=== PATIENT | female | born 1990 | race Hispanic/Latino ===

== ENCOUNTER 2018-04-14 13:52 | Inpatient (IN) | payer MEDICAID, SELFPAY ==
[2018-04-14 14:41] VITALS: BMI 35.9
[2018-04-14 15:50] LABS: Bilirubin Small (Negative); Blood, Urine Negative (Negative); Clarity CLOUDY (Clear); Glucose, Urine (Dipstick) Negative (Negative); Leukocyte Negative (Negative); Nitrite Negative (Negative); Protein, Urine (Dipstick) 100 mg/dL (Neg-Trace); Specific Gravity, Urine 1.018 (1.002-1.036); pH, Urine 5.5 (5.0-9.0)
[2018-04-14 15:53] LABS: Bacteria/HPF None Seen HPF (None Seen); Hyaline Casts/LPF 4-6 HYALINE CAST LPF (0-3 Hyaline); Squamous Epithelial 0-3 HPF (0-3); WBC/HPF 0-3 HPF (0-3)
[2018-04-14 15:59] LABS: #Eosinphils 0.1 thou/uL (0.0-0.7); #Lymphocytes 1.8 thou/uL (1.20-3.40); #Monocytes 0.4 thou/uL (0.11-0.59); #Neutrophils 3.9 thou/uL (1.40-6.50); %Basophils 0.1 % (0.0-1.0); %Lymphocytes 28.9 % (21.0-51.0); %Monocytes 6.1 % (0.0-10.0); %Neutrophils 63.8 % (42.0-75.0); Hemoglobin 12.8 g/dL (12.0-16.0); Mean Corpuscular HGB CONC 33.6 g/dL (32.0-36.0); Mean Corpuscular Hemoglobin 27.3 pg (27.0-31.0); Mean Corpuscular Volume 81.2 fl (81.0-99.0); Platelet Count 160 thou/uL (130-400); RBC Distribution Width 20.2 % (11.5-14.5); Red Blood Cell (RBC) Count 4.69 mill/uL (4.20-5.40); White Blood Cell (WBC) Count 6.2 thou/uL (4.8-10.8)
[2018-04-14 16:04] LABS: Crystals/HPF 2+ AMORPH URATES HPF (Negative); RBC/HPF 0-3 HPF (0-3)
[2018-04-14 17:31] LABS: Bilirubin Moderate (Negative); Blood, Urine Negative (Negative); Clarity CLOUDY (Clear); Glucose, Urine (Dipstick) Negative (Negative); Leukocyte Negative (Negative); Nitrite Negative (Negative); Protein, Urine (Dipstick) 30 mg/dL (Neg-Trace); Specific Gravity, Urine 1.022 (1.002-1.036); pH, Urine 5.5 (5.0-9.0)
[2018-04-14 17:33] LABS: Bacteria/HPF None Seen HPF (None Seen); Squamous Epithelial 0-3 HPF (0-3); WBC/HPF 0-3 HPF (0-3)
[2018-04-14 17:34] LABS: Pathc Cast-AUWi Flag 3.05 (0-2.49)
[2018-04-14 17:51] LABS: Hyaline Casts/LPF 0-3 HYALINE CAST LPF (0-3 Hyaline); Other Casts/LPF 0-3 COARSE GRAN LPF (0-3 Hyaline)
[2018-04-14 18:02] LABS: ALT (SGPT) 78 U/L (8-55); AST (SGOT) 62 U/L (5-34); Albumin 3.1 g/dL (3.5-5.0); Alkaline Phosphatase 326 U/L (40-150); Anion Gap 16 mmol/L (10-20); BUN (Urea Nitrogen) 10 mg/dL (7.0-18.7); Bilirubin, Total 1.7 mg/dL (0.2-1.2); Calc. Creatinine Clearance 133 mL/min (70-130); Carbon Dioxide 19 mmol/L (22-29); Chloride 103 mmol/L (98-107); Estimated GFR-MDRD Greater than 90; Globulin 3.8 g/dL (2.4-3.5); Glucose 73 mg/dL (70-105); Potassium 3.8 mmol/L (3.5-5.1); Protein, Total 6.9 g/dL (6.0-8.3); Sodium 134 mmol/L (136-145)
[2018-04-14] MEDS ORDERED: Ondansetron HCl/PF 4 MG/2 ML Vial IVP PRN (18:26)
[2018-04-14] MEDS ORDERED: Promethazine HCl 25 MG/ML VIAL IM PRN (18:26)
[2018-04-14] MEDS ORDERED: Zolpidem Tartrate 5 MG TAB PO PRN (18:26)
[2018-04-14] MEDS ORDERED: Betamet Acet/Betamet Na Ph 30 MG/5 ML VIAL ONE (18:28)
--- NOTE | 2018-04-14 18:36 | PDOC.LDHP ---
Labor and Delivery H&P Chief complaint: contractions HPI: 28 yo LAF at 36 weeks presents c/o UC since early this AM. Denies ROM, bleeding, DODSON or visual changes. Has repeat C/S set with Dr. Cochran on 04/29/18. Current gestational age (weeks): 36 Due date: 05/10/18 Dating criteria: second trimester ultrasound Grav: 6 Para: 5 Current complications: gestational diabetes Abnormal US findings: No Current medications: pre- vitamins, other (Metformin) Previous surgical history: low tranverse CS Allergies/Adverse Reactions: Allergies Allergy/AdvReac Type Severity Reaction Status Date / Time No Known Drug Allergies Allergy Verified 04/14/18 16:18 Social history: none - Physical Exam Abnormal vital signs: Initial BP= 142/95 General: NAD Heart: RRR Lungs: nonlabored breathing Abdomen: gravid FHT: category 1 [place] contractions every: No regular UCs seen - Vaginal Exam cm dilated: 1 Effacement: 50% Station: 3+ - OB Labs Blood type: O RH: positive Antibody Screen: negative HIV: negative RPR: negative HEPSAg: negative GBS: negative Rubella: immune - Assessment 36 2/7 week IUP 4 previous C/S GDM on diet, Metformin Mildly elevated LFTs, with proteinuria - Plan -: D/w Dr Cochran Will OBS for now and start 24 hr urine for TP and give steroids for FLM Labs will be repeated in AM.
--- NOTE | 2018-04-14 21:45 | ULT ---
RIGHT UPPER QUADRANT ABDOMINAL ULTRASOUND: 04/14/18 HISTORY: Elevated LFTs. COMPARISON: None. TECHNIQUE: Multiplanar bravo scale and color doppler images are obtained in a right upper quadrant abdominal ultr asound. FINDINGS: The liver is normal in echogenicity without focal lesions or intrahepatic ductal dilatation. There ar e multiple stones filling the gallbladder without gallbladder wall thickening or pericholecystic flui d The common bile duct is normal measuring 3 mm. The visualized portions of the pancreas are unremarkable. The right kidney is normal in echogenicity without hydronephrosis or calculus and measures 10.4 cm in length. IMPRESSION: Cholelithiasis. POS: SOHAIL
--- NOTE | 2018-04-14 21:50 | ULT ---
OB ULTRASOUND 04/14/18 HISTORY: female with hypertension. TECHNIQUE: Multiplanar bravo scale and color doppler images were obtained in a transabdominal ultrasound. FINDINGS: There is a single live intrauterine with heart rate of 141 beats per minute. Estimated feta l weight is 336 grams. Average age of the fetus based off today's examination is 36 weeks, 5 days. Th e following measurements were taken and dates based on these measurements are as follows: BPD 9.0 cm 36 weeks, 3 days HC 32.25 cm 36 weeks, 3 days AC 35.27 cm 39 weeks, 1 day FL 6.98 cm 35 weeks, 6 days JORDAN is 23.7 cm, which is normal. IMPRESSION: Single live intrauterine with estimated age of 36 weeks, 5 days. POS: SOHAIL
--- NOTE | 2018-04-14 21:52 | ULT ---
BIOPHYSICAL PROFILE 04/14/18 HISTORY: female with hypertension. TECHNIQUE: Multiplanar bravo scale and color doppler images were obtained in a transabdominal ultrasound fo r biophysical profile. FINDINGS: There is a single live intrauterine with heart rate of 141 beats per minute. JORDAN is 23.7 cm , which is normal. The patient scored 8 of 8 on the biophysical profile. IMPRESSION: Normal biophysical profile. POS: CHAO
[2018-04-15 01:20] LABS: Creatinine, Urine 108.01 mg/dL (47-110)
[2018-04-15 01:54] LABS: HBSAg Index 0.19 S/CO (0-0.99); Hep B Surf Ag Non-Reactive S/CO (NonReactive); Hep C IgG Ab Non-Reactive (NonReactive); Hep C Index 0.06 S/CO (0-0.79)
--- NOTE | 2018-04-15 05:47 | PDOC.EVN ---
Event Note - Event Note Event Note: Sleeping. Last BP= 117/66. 24 hr urine for TP in progress. 1st dose of steroids given CBC and Chem panel pending.
[2018-04-15 06:45] LABS: Hemoglobin 12.1 g/dL (12.0-16.0); Mean Corpuscular HGB CONC 33.4 g/dL (32.0-36.0); Mean Platelet Volume 10.1 fL (7.4-10.4); Platelet Count 136 thou/uL (130-400); RBC Distribution Width 20.1 % (11.5-14.5); Red Blood Cell (RBC) Count 4.49 mill/uL (4.20-5.40); White Blood Cell (WBC) Count 4.9 thou/uL (4.8-10.8)
[2018-04-15 07:04] LABS: ALT (SGPT) 77 U/L (8-55); AST (SGOT) 55 U/L (5-34); Albumin 2.8 g/dL (3.5-5.0); Alkaline Phosphatase 293 U/L (40-150); Anion Gap 14 mmol/L (10-20); BUN (Urea Nitrogen) 15 mg/dL (7.0-18.7); Bilirubin, Total 1.5 mg/dL (0.2-1.2); Calc. Creatinine Clearance 124 mL/min (70-130); Calcium 8.6 mg/dL (7.8-10.44); Carbon Dioxide 17 mmol/L (22-29); Chloride 107 mmol/L (98-107); Estimated GFR-MDRD 89; Globulin 3.5 g/dL (2.4-3.5); Glucose 156 mg/dL (70-105); Potassium 4.1 mmol/L (3.5-5.1); Protein, Total 6.3 g/dL (6.0-8.3); Sodium 134 mmol/L (136-145)
--- NOTE | 2018-04-15 07:45 | PDOC.LDPN ---
Labor & Delivery Progress Note - Subjective Subjective: comfortable, other (Pt denies any ctx. Good FM. No h/a, swelling, RUQ pain or any other concerns this AM. ) - Objective Vital signs reviewed and normal: yes (All wnl. No HTN overnight with continuous observation) General: NAD, other (no edema, no RUQ tenderness, ) Uterine fundus: non tender FHT: category 1 (130s, mod sharda, +accels, no decels) [place] contractions every: ctx on admission, none since - Assessment (1) 36 weeks gestation of Code(s): Z3A.36 - 36 WEEKS GESTATION OF Current Visit: Yes Status : Acute (2) Transaminitis Code(s): R74.0 - NONSPEC ELEV OF LEVELS OF TRANSAMNS & LACTIC ACID DEHYDRGNSE Current Visit: Yes Status: Acute (3) Gestational diabetes Code(s): O24.419 - GESTATIONAL DIABETES MELLITUS IN , UNSP CONTROL Current Visit: Yes Status: Acute (4) Cholelithiasis Code(s): K80.20 - CALCULUS OF GALLBLADDER W/O CHOLECYSTITIS W/O OBSTRUCTION Current Visit: Yes Status: Acute -: VSS overnight. Only mild HTN on admission, otherwise normal. Suspect may have been related to pain on initial evaluation. . Reviewed labs with pt. LFTs are stable and no thrombocytopenia or anemia. RUQ US with cholelithiasis. This may be the source for transaminitis. 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 24 hour urine pending. BPP 8/8, FAY wnl. Complete 24 hour observation and await pending labs. Reviewed with pt that if HTN and labs are persistent, dx of pre-eclampsia with severe features would prompt delivery, therefore BMTZ course started. However, at this time uncertain of source of laboratory abnormalities. Accuchecks today. Will not restart metformin due to LFTs
[2018-04-15 09:10] LABS: HIV (1/2) Antibody/Antigen Non-Reactive (NonReactive); HIV 1/2 INDEX 0.05 S/CO (<1.00)
--- NOTE | 2018-04-15 16:56 | PDOC.LDPN ---
Labor & Delivery Progress Note - Subjective Subjective: comfortable - Objective Vital signs reviewed and normal: yes General: NAD Uterine fundus: non tender FHT: category 2 (130s, mod sharda, +accels, one variable decel when moving. Reassuring FHTs and BPP 06/22) [place] contractions every: rare - Assessment (1) 36 weeks gestation of Code(s): Z3A.36 - 36 WEEKS GESTATION OF Current Visit: Yes Status : Acute (2) Transaminitis Code(s): R74.0 - NONSPEC ELEV OF LEVELS OF TRANSAMNS & LACTIC ACID DEHYDRGNSE Current Visit: Yes Status: Acute (3) Gestational diabetes Code(s): O24.419 - GESTATIONAL DIABETES MELLITUS IN , UNSP CONTROL Current Visit: Yes Status: Acute (4) Cholelithiasis Code(s): K80.20 - CALCULUS OF GALLBLADDER W/O CHOLECYSTITIS W/O OBSTRUCTION Current Visit: Yes Status: Acute -: General surgery consult done. Per recommendations, repeat labs this PM and tomorrow AM. If bilirubin and/or LFTs worsen, will recommend GI referral and possible ERCP. Pt BPs have remained completely normal for approx 24 hours on bedrest, therefore , do not suspect that her transaminitis is due to pre-eclampsia a this time. 24 hour urine protein pending. EFM BID. BMTZ course to complete this PM. All reviewed with pt
[2018-04-15] MEDS ORDERED: Insulin Regular 300 UNITS/3 ML VIAL SC SCH (17:00)
--- NOTE | 2018-04-15 17:06 | CON ---
DATE OF CONSULTATION: 04/15/2018 CHIEF COMPLAINT: Gallstones with elevated liver function test. HISTORY OF PRESENT ILLNESS: This is a 28-year-old female G6, P5 at 36 weeks who presents with a hist ory of contractions this morning admitted to Labor and Delivery. She initially had some elevated blo od pressures that have now resolved. Patient was found to have mildly elevated liver function test. She had an ultrasound which showed gallstones, but a normal common bile duct. She denies any abdomi nal pain, nausea, vomiting. Denies previous known history of gallstones, jaundice, or pancreatitis. I have been consulted for the significance of these elevated liver test and gallstones. Dr. Denney is deciding on the basis of the protein in her urine, her initially elevated blood pressure whether t o perform early. PAST MEDICAL HISTORY: Gestational diabetes. PAST SURGICAL HISTORY: . MEDICINES TAKEN DAILY: See list. ALLERGIES: No known drug allergies. SOCIAL HISTORY: No smoking, alcohol or other drugs. REVIEW OF SYSTEMS: Ten-system review of systems is otherwise negative unless described above. FAMILY HISTORY: Noncontributory to GI malignancy or anesthetic related complication. PHYSICAL EXAMINATION: VITAL SIGNS: Blood pressure is 110/66, her pulse is 100, respirations are 16. She is afebrile. HEENT: Sclerae are anicteric. Oropharynx clear. NECK: No lymphadenopathy. CHEST: Clear. HEART: Increased rate, regular rhythm without murmur. ABDOMEN: Soft, nontender. EXTREMITIES: No significant edema to extremities. LABORATORY AND X-RAY FINDINGS: White blood cell count is 4.9, hemoglobin is 12, platelet count is 13 6. Sodium 134, potassium is 4.1, creatinine 0.76. Bilirubin is 1.5, alkaline phosphatase is 293. U ltrasound shows gallstones, common bile duct 3 mm. ASSESSMENT AND PLAN: Gallstones with elevated liver function tests. This could be all related to he r with Dr. Denney closely monitoring her to decide on timing of . She is hemodyna mically stable now. She has no symptoms of biliary tract disease. I think she does need laparoscopi c cholecystectomy after delivery with intraoperative cholangiogram, especially if she is planning fut ure pregnancies. If retest on LFTs shows trend up in the bilirubin, may need to have Gastroenterolog y involved. Dr. Palomino is covering for me this weekend. We will discuss with him as well. We will f prema with you.
[2018-04-15 17:14] LABS: Collection Duration 24 hrs; Urine Total Volume 1150 mL (600-1600)
[2018-04-15 17:32] LABS: #Basophils 0.1 thou/uL (0.0-0.2); #Monocytes 0.4 thou/uL (0.11-0.59); #Neutrophils 4.7 thou/uL (1.40-6.50); %Basophils 0.9 % (0.0-1.0); %Eosinophils 0.4 % (0.0-10.0); %Lymphocytes 16.5 % (21.0-51.0); %Monocytes 6.1 % (0.0-10.0); %Neutrophils 76.1 % (42.0-75.0); Mean Corpuscular HGB CONC 33.3 g/dL (32.0-36.0); Mean Corpuscular Hemoglobin 27.1 pg (27.0-31.0); Mean Corpuscular Volume 81.3 fl (81.0-99.0); Mean Platelet Volume 10.1 fL (7.4-10.4); Platelet Count 128 thou/uL (130-400); RBC Distribution Width 20.3 % (11.5-14.5); Red Blood Cell (RBC) Count 4.44 mill/uL (4.20-5.40); White Blood Cell (WBC) Count 6.2 thou/uL (4.8-10.8)
[2018-04-15 17:48] LABS: Protein - 24 Hr 610 mg/24 hr (Less than 300); Protein, Urine 53 mg/dL (1-14)
[2018-04-15 17:53] LABS: ALT (SGPT) 87 U/L (8-55); AST (SGOT) 65 U/L (5-34); Albumin 2.9 g/dL (3.5-5.0); Alkaline Phosphatase 280 U/L (40-150); Anion Gap 15 mmol/L (10-20); BUN (Urea Nitrogen) 10 mg/dL (7.0-18.7); Bilirubin, Total 1.1 mg/dL (0.2-1.2); Calc. Creatinine Clearance 139 mL/min (70-130); Calcium 8.6 mg/dL (7.8-10.44); Carbon Dioxide 18 mmol/L (22-29); Chloride 106 mmol/L (98-107); Estimated GFR-MDRD Greater than 90; Globulin 3.3 g/dL (2.4-3.5); Glucose 147 mg/dL (70-105); Potassium 3.9 mmol/L (3.5-5.1); Protein, Total 6.2 g/dL (6.0-8.3); Sodium 135 mmol/L (136-145)
[2018-04-15] MEDS: Betamet Acet/Betamet Na Ph 30 MG/5 ML VIAL IM SCH (18:46)
[2018-04-15] MEDS ORDERED: Dextrose 5% in Water 1,000 ML IV PRN (21:10)
[2018-04-15] MEDS ORDERED: Dextrose 50% Abboject 50 ML SYRINGE IVP PRN (21:10)
[2018-04-15] MEDS ORDERED: Insulin Regular 300 UNITS/3 ML VIAL SC PRN (21:14)
--- NOTE | 2018-04-16 07:10 | PDOC.EVN ---
Event Note - Event Note Event Note: Admitted 04/14 HD 3 OBGYN Note (APU 1) Patient of Dr Arshad admitted for possible PIH vs Cholestasis, with cholelithiasis I have seen the patient this (0700) AM S. No RUQ pain, states itching in arms and legs O. BPs normal since 1600 yesterday Labs: AST 65 from 55 ALT 87 from 77 24 hour TP 610 Consultants: Dr Carrasquillo for GB stones Assessment and Plan: 36 weeks 3 days with possible cholestasis by sxs and LFTS. Serum bile acids out..prnding I will review plan with Dr Arshad this am and The Yossi coming on shift at 0800 As no biliary colic or CBD dilation, unsure if ERCP will benefit. S/P celestone...has SSI for sugars due to celestone effcet and GDM
--- NOTE | 2018-04-16 08:05 | PDOC.EVN ---
Event Note - Event Note Event Note: D/W Leudke, as sxs of widespraed pruritus..cholestasis likely. As also with CS x4...meets criteria for medically indicated late delivery. Will make NPO. Plan on Rt CS this AM Will notify Parrent as well. Anesthesia pending.
[2018-04-16 08:43] LABS: #Monocytes 0.3 thou/uL (0.11-0.59); #Neutrophils 4.6 thou/uL (1.40-6.50); %Basophils 0.4 % (0.0-1.0); %Eosinophils 0.3 % (0.0-10.0); %Lymphocytes 16.4 % (21.0-51.0); %Neutrophils 77.9 % (42.0-75.0); Hemoglobin 11.9 g/dL (12.0-16.0); Mean Corpuscular HGB CONC 33.2 g/dL (32.0-36.0); Mean Corpuscular Hemoglobin 27.6 pg (27.0-31.0); Mean Corpuscular Volume 83.1 fl (81.0-99.0); Mean Platelet Volume 10.6 fL (7.4-10.4); Platelet Count 138 thou/uL (130-400); RBC Distribution Width 20.4 % (11.5-14.5); Red Blood Cell (RBC) Count 4.31 mill/uL (4.20-5.40); White Blood Cell (WBC) Count 5.9 thou/uL (4.8-10.8)
[2018-04-16] MEDS ORDERED: Lactated Ringer's 1,000 ML IV SCH (08:45)
[2018-04-16] MEDS: Betamet Acet/Betamet Na Ph 30 MG/5 ML VIAL IM SCH (08:55)
[2018-04-16 09:01] LABS: ALT (SGPT) 117 U/L (8-55); AST (SGOT) 84 U/L (5-34); Alkaline Phosphatase 278 U/L (40-150); Anion Gap 16 mmol/L (10-20); BUN (Urea Nitrogen) 8 mg/dL (7.0-18.7); Calc. Creatinine Clearance 131 mL/min (70-130); Calcium 8.7 mg/dL (7.8-10.44); Carbon Dioxide 20 mmol/L (22-29); Chloride 107 mmol/L (98-107); Estimated GFR-MDRD Greater than 90; Globulin 3.4 g/dL (2.4-3.5); Glucose 118 mg/dL (70-105); Potassium 4.4 mmol/L (3.5-5.1); Protein, Total 6.4 g/dL (6.0-8.3); Sodium 139 mmol/L (136-145)
[2018-04-16] MEDS ORDERED: CEFAZOLIN 2 GM in Sodium Chloride 0.9% 100 ML IVPB SCH (09:30)
[2018-04-16] MEDS ORDERED: Bicitra 30 ML UDCUP PO SCH (09:30)
[2018-04-16] MEDS ORDERED: CEFAZOLIN/Water 2 GM/20 ML SYRINGE SLOW IVP SCH (10:15)
[2018-04-16] MEDS ORDERED: Sodium Chloride 0.9% 0 ML ONE (10:27)
[2018-04-16] MEDS ORDERED: EPINEPHrine 1 MG/ML AMP ONE (10:49)
[2018-04-16] MEDS ORDERED: Oxytocin 10 UNITS/ML VIAL ONE ×2 (10:49→11:43)
[2018-04-16] MEDS ORDERED: Bupivacaine 0.75% W/DEXTROSE 8.25% 2 ML AMP ONE (10:49)
[2018-04-16] MEDS ORDERED: Morphine PF 1 MG/ML SYR ONE (10:49)
[2018-04-16] MEDS ORDERED: Fentanyl 100 MCG/2 ML VIAL ONE (10:55)
[2018-04-16 11:57] LABS: CO2 Tension 53.3 mmHg (35.0-45.0); pH, Arterial 7.29 (7.35-7.45)
[2018-04-16 12:00] LABS: Actual Bicarbonate (HCO3a) 24.8 mEq/L (22-26); Base Excess (BEa) -2.5 mEq/L (0 (+/-) 2.5)
[2018-04-16] MEDS ORDERED: Communication Order-Pharmacy FS SCH (12:00)
[2018-04-16] MEDS ORDERED: Naloxone HCl 0.4 mg/ml Vial IV PRN ×3 (12:00→16:07)
[2018-04-16] MEDS ORDERED: Ondansetron HCl/PF 4 MG/2 ML Vial IVP PRN ×2 (12:00)
[2018-04-16] MEDS ORDERED: Promethazine HCl 25 MG SUPP PR PRN ×2 (12:00→16:05)
[2018-04-16] MEDS ORDERED: Naloxone HCl 0.4 mg/ml Vial IVP PRN ×3 (12:00→16:06)
[2018-04-16] MEDS ORDERED: HYDROmorphone 2 MG/ML VIAL SLOW IVP PRN (12:00)
[2018-04-16] MEDS ORDERED: Meperidine HCl/PF 25 MG/ML VIAL SLOW IVP PRN (12:00)
[2018-04-16] MEDS ORDERED: Ketorolac Tromethamine 30 MG/ML VIAL IVP PRN (12:00)
[2018-04-16] MEDS ORDERED: Eucerin (Mineral Oil/Petrolatum,White) 30 gm Jar TOP PRN ×2 (12:00→16:08)
[2018-04-16] MEDS ORDERED: Promethazine HCl 25 MG/ML VIAL IM PRN ×2 (12:00→16:05)
[2018-04-16] MEDS ORDERED: diphenhydrAMINE 50 MG/ML VIAL IVP PRN (12:00)
[2018-04-16 12:02] LABS: Hematocrit-ABG 38.9 % (36.0-47.0); Hemoglobin (Hb) 13.2 g/dL (12.0-16.0)
[2018-04-16 12:03] LABS: ALV-art Gradient 64.105 (0-20); Calcium, Ionized 1.5 mmol/L (1.12-1.30); Puncture Site UAC
--- NOTE | 2018-04-16 12:13 | PDOC.OPDEL ---
OB Operative/Delivery Note Delivery Dr/Surgeon: Zohra Denney DO Assist: Matthew Sy MD Pre-Delivery Diagnosis: scheduled section (36 week IUP, Cholestasis of , nephrotic syndrome, previous CS x4, malpresentation) Procedure/Post Delivery Dx: repeat low transverse CS Weeks gestation: 36 Anesthesia: spinal - Findings A Sex: female - 1 min: 8 - 5 min: 9 - Additional Findings/Plan Placenta delivered: spontaneous findings: low transverse hysterotomy without extension, normal uterus, normal tubes, normal ovaries, other (severe rectus diestasis, meconium stained AF) Estimated blood loss: 600 cc Post delivery plan: routine recovery
[2018-04-16] MEDS ORDERED: Methylergonovine 0.2 MG/ML VIAL IM PRN (12:54)
[2018-04-16] MEDS ORDERED: Bisacodyl 10 MG SUPP PR PRN (12:54)
[2018-04-16] MEDS ORDERED: Misoprostol 200 MCG TAB PR PRN (12:54)
[2018-04-16] MEDS ORDERED: NS / Oxytocin 40 units/1000ml 1,000 ML IV SCH (12:54)
[2018-04-16] MEDS ORDERED: Adacel (T-DAP) 0.5 ML VIAL IM ONE (12:54)
[2018-04-16] MEDS ORDERED: Ondansetron HCl/PF 4 MG/2 ML Vial ONE (14:22)
[2018-04-16] MEDS ORDERED: Ketorolac Tromethamine 30 MG/ML VIAL ONE (14:22)
[2018-04-16] MEDS: Lactated Ringer's 1,000 ML IV SCH ×2 (14:24→18:02)
--- NOTE | 2018-04-16 20:05 | OP ---
PREOPERATIVE DIAGNOSES: 1. A 36 week intrauterine . 2. Presumed cholestasis of . 3. Nephrotic syndrome. 4. Previous delivery x4. 5. malpresentation and transverse back up position. POSTOPERATIVE DIAGNOSES: 1. A 36 week intrauterine . 2. Presumed cholestasis of . 3. Nephrotic syndrome. 4. Previous delivery x4. 5. malpresentation and transverse back up position. PROCEDURE: 1. Internal podalic version into cephalic presentation. 2. Repeat low transverse delivery via Pfannenstiel skin incision. SURGEON: Zohra Denney D.O. AMPOULE FILLER AND SEALER: Matthew Sy M.D. COMPLICATIONS: None. ESTIMATED BLOOD LOSS: 600 mL. IV FLUIDS: 500 mL. URINE OUTPUT: 150 mL. FINDINGS: Severe rectus abdominis diastasis, mild adhesions from the dome of the bladder to the lower uterine segment of the uterus. Otherwise, normal appearing uterus, fallopian tubes and ovaries bilaterally. Thin meconium stained amniotic fluid. A viable female infant with Apgars 8 and 9. Normal appearing placenta. INDICATIONS FOR THE PROCEDURE: Ms. Violet Valentine is a 28-year-old G6, P5 at 36 weeks and 4 days, who presented to labor and delivery on 04/14/2018 with complaints of contractions. She underwent evaluation and was noted to have mild range pressures initially and upon evaluation which completely resolved and she remained normotensive for approximately 48 hours. The patient did have preeclampsia labs drawn due to her initial mild range blood pressure and was found to have transaminitis and proteinuria. The patient underwent an evaluation for a possible atypical presentation for preeclampsia; however, her blood pressures again remained completely normotensive for 48 hours without any intervention. Her transaminitis did slightly worsen. She received a right upper quadrant sonogram that showed cholelithiasis; however, during her admission, patient then described severe itching generally and also worse on the palms and soles. Due to this finding, it was seemed that patient likely had cholestasis of based on laboratory assessment and patient's symptoms. Her bile acids are still pending. The patient did receive a course of betamethasone for lung maturity throughout her hospital course. PROCEDURE IN DETAIL: The patient was brought to the operating room. She was placed under spinal anesthesia and placed in supine position using a leftward tilt. A Fischer catheter was placed. She was given Ancef preoperatively for surgical prophylaxis. An official timeout was performed. Anesthesia was assessed and proven to be adequate. A Pfannenstiel skin incision was made removing the previous scar tissue. This was carried down to underlying fascial layer. There was dense scarring in the subcutaneous tissue that required cauterization using the Bovie. The rectus abdominis muscles were displayed very laterally. She had a large rectus diastasis. The fascia was then extended using sharp dissection with Solomon scissors. The superior aspect of the fascial incision was grasped using Rasta clamps, tended upwards and dissected free from the underlying adhesions. The same was performed in the lower aspect of the fascial incision. The peritoneum was then entered in bluntly and extended using both sharp and blunt dissection. The bladder was noted to have mild adhesions up to the lower uterine segment. Leonardo O retractor was placed into the abdomen, and a bladder flap was created. The had been evaluated by sonogram prior to delivery and was noted to be in transverse back up. Therefore, prior to the hysterotomy, an internal abdominal version was performed to allow the fetus to be in cephalic presentation. A low transverse hysterotomy was made using the scalpel. The hysterotomy was extended using blunt dissection. Amniotic membranes were ruptured, noting thin meconium stained amniotic fluid. Fetus was delivered in cephalic presentation without difficulty. 's cord was clamped and cut. was handed to the waiting Neonatology team. Cord sample for cord gases obtained. Cord blood was also obtained. The placenta was delivered spontaneously intact. The uterus was cleared of all clot and debris. Hysterotomy was closed in a running locking fashion using 0 Monocryl and was hemostatic after closure. The pelvis was irrigated and cleared of all clot and debris. The adnexa were evaluated, noting normal fallopian tubes and ovaries. The Leonardo O retractor was removed from the abdomen. The peritoneum was closed in a running fashion using plain gut. The fascia was then closed in a running fashion using 0 PDS. The subcutaneous layer was copiously irrigated, hemostatic with use of the Bovie. The subcutaneous layer was reapproximated using Vicryl and the skin was closed using italia. There were no complications. All counts were correct x3. Mother and baby will be transferred to routine recovery and the patient will have additional lab work in the morning to evaluate her level of transaminitis and renal function as well. LAMAR
[2018-04-16] MEDS: Simethicone Chewable 80 MG TAB PO PRN (21:48)
[2018-04-16] MEDS ORDERED: Sodium Chloride 0.9% 10 ML ONE (23:02)
[2018-04-16] MEDS ORDERED: HYDROcodone/Acetaminophen 5/325 mg Tablet PO PRN (23:59)
[2018-04-17] MEDS: Lactated Ringer's 1,000 ML IV SCH ×3 (01:26→15:30)
--- NOTE | 2018-04-17 03:08 | PDOC.PP ---
Post Progress Note Post Day #: POD#1 Subjective: Resting comfortably. No c/o. PO intake tolerated: yes Flatus: no Ambulation: yes Vital Signs (12 hours) Temp Pulse Resp BP 04/16/18 23:47 98.2 F 76 16 125/83 04/16/18 19:59 98.1 F 87 16 119/59 L 04/16/18 16:35 98.0 F 83 18 113/55 L 04/16/18 15:35 74 18 120/56 L Weight Weight 72.575 kg - Physical Examination General: NAD Respiratory: non-labored breathing Abdominal: no distention Extremities: negative homans (B) Psychiatric: A&Ox3, normal affect Result Diagrams: 04/16/18 08:23 04/16/18 08:23 Additional Labs: Post Labs Blood Type O POSITIVE 04/15/18 08:14 Hep Bs Antigen Non-Reactive S/CO (NonReactive) 04/14/18 21:08 - Assessment/Plan Doing well. Routine postop care. H/H and LFTs in AM.
[2018-04-17] MEDS: Ibuprofen 800 MG TAB PO SCH ×3 (03:13→21:50)
[2018-04-17 04:53] LABS: ALT (SGPT) 107 U/L (8-55); AST (SGOT) 71 U/L (5-34); Albumin 2.6 g/dL (3.5-5.0); Alkaline Phosphatase 216 U/L (40-150); Anion Gap 9 mmol/L (10-20); BUN (Urea Nitrogen) 10 mg/dL (7.0-18.7); Bilirubin, Total 0.6 mg/dL (0.2-1.2); Calc. Creatinine Clearance 129 mL/min (70-130); Calcium 8.4 mg/dL (7.8-10.44); Carbon Dioxide 24 mmol/L (22-29); Chloride 107 mmol/L (98-107); Estimated GFR-MDRD Greater than 90; Globulin 2.8 g/dL (2.4-3.5); Glucose 132 mg/dL (70-105); Potassium 4.2 mmol/L (3.5-5.1); Protein, Total 5.4 g/dL (6.0-8.3); Sodium 136 mmol/L (136-145)
[2018-04-17 05:34] LABS: #Lymphocytes 1.6 thou/uL (1.20-3.40); #Monocytes 0.6 thou/uL (0.11-0.59); #Neutrophils 4.7 thou/uL (1.40-6.50); %Basophils 0.5 % (0.0-1.0); %Eosinophils 0.5 % (0.0-10.0); %Lymphocytes 22.8 % (21.0-51.0); %Monocytes 8.5 % (0.0-10.0); %Neutrophils 67.7 % (42.0-75.0); Hemoglobin 11.1 g/dL (12.0-16.0); Mean Corpuscular HGB CONC 33.2 g/dL (32.0-36.0); Mean Corpuscular Hemoglobin 27.8 pg (27.0-31.0); Mean Corpuscular Volume 83.7 fl (81.0-99.0); Mean Platelet Volume 10.7 fL (7.4-10.4); Platelet Count 144 thou/uL (130-400); RBC Distribution Width 20.1 % (11.5-14.5); Red Blood Cell (RBC) Count 4.01 mill/uL (4.20-5.40); White Blood Cell (WBC) Count 6.9 thou/uL (4.8-10.8)
[2018-04-17] MEDS: Prenatal Vitamin 1 TAB PO SCH (09:49)
[2018-04-17] MEDS: Simethicone Chewable 80 MG TAB PO PRN (09:49)
[2018-04-17] MEDS: HYDROcodone/Acetaminophen 5/325 mg Tablet PO PRN ×2 (12:56→20:06)
[2018-04-17] MEDS ORDERED: Ibuprofen 800 MG TAB PO SCH (14:00)
[2018-04-18] MEDS: Lactated Ringer's 1,000 ML IV SCH ×3 (00:45→17:22)
[2018-04-18] MEDS: Ibuprofen 800 MG TAB PO SCH ×3 (05:16→22:16)
[2018-04-18] MEDS: HYDROcodone/Acetaminophen 5/325 mg Tablet PO PRN ×3 (05:16→19:22)
--- NOTE | 2018-04-18 07:28 | PDOC.PP ---
Post Progress Note Post Day #: 2 Subjective: C/O slight increase in LE swelling. Denies other complaints. Itching improved. Infant in NICU due to hypoglycemia. Minimal lochia. PO intake tolerated: yes Flatus: yes Ambulation: yes Vital Signs (12 hours) Temp Pulse Resp BP Pulse Ox 04/17/18 23:20 97.7 F 86 20 121/74 98 04/17/18 20:00 98.1 F 84 20 115/74 98 Weight Weight 160 lb - Physical Examination General: NAD Cardiovascular: RRR Respiratory: non-labored breathing Abdominal: no distention, appropriately TTP Fundus firm & at: below umbilicus Extremities: negative homans (B) Skin: CS incision dry & intact (some italia have been displaced, will place steri strips.) Neurological: no gross focal deficits Psychiatric: A&Ox3, normal affect Result Diagrams: 04/17/18 04:26 04/17/18 04:26 Additional Labs: Post Labs Blood Type O POSITIVE 04/15/18 08:14 Hep Bs Antigen Non-Reactive S/CO (NonReactive) 04/14/18 21:08 (1) 36 weeks gestation of Code(s): Z3A.36 - 36 WEEKS GESTATION OF Status: Resolved (2) Transaminitis Code(s): R74.0 - NONSPEC ELEV OF LEVELS OF TRANSAMNS & LACTIC ACID DEHYDRGNSE Status: Acute (3) Gestational diabetes Code(s): O24.419 - GESTATIONAL DIABETES MELLITUS IN , UNSP CONTROL Status: Resolved (4) Cholelithiasis Code(s): K80.20 - CALCULUS OF GALLBLADDER W/O CHOLECYSTITIS W/O OBSTRUCTION Status: Acute (5) Cholestasis during Code(s): O26.619 - LIVER AND BILIARY TRACT DISORD IN , UNSP TRIMESTER; K83.1 - OBSTRUCTION OF BILE DUCT Status: Acute - Assessment/Plan PPD #2 VSSAF Doing well post . Continue post care. Repeat CMP this AM. TBili has imporved. Will notify general surgery with labs. Likely due to dx of ICP, however, will assure labs not worsening. Pt still remains asx besides itching. Plan for d/c tomorrow.
[2018-04-18] MEDS: Prenatal Vitamin 1 TAB PO SCH (08:44)
[2018-04-18 09:30] LABS: ALT (SGPT) 78 U/L (8-55); AST (SGOT) 33 U/L (5-34); Albumin 2.9 g/dL (3.5-5.0); Alkaline Phosphatase 221 U/L (40-150); Bilirubin, Direct 0.2 mg/dL (0.1-0.3); Bilirubin, Total 0.5 mg/dL (0.2-1.2); Protein, Total 5.9 g/dL (6.0-8.3)
[2018-04-19] MEDS: Lactated Ringer's 1,000 ML IV SCH ×2 (01:05→08:57)
[2018-04-19] MEDS: Ibuprofen 800 MG TAB PO SCH ×2 (05:14→14:19)
[2018-04-19 07:53] VITALS: BP 125/80; TEMP 98.3
[2018-04-19] MEDS ORDERED: traMADol HCl 50 MG TAB PO PRN (08:33)
--- NOTE | 2018-04-19 09:23 | PDOC.PP ---
Post Progress Note Post Day #: 3 Subjective: No concerns. Minimal lochia. Pain controlled. Pumping. still in NICU for hypoglycemia. PO intake tolerated: yes Flatus: yes Ambulation: yes Vital Signs (12 hours) Temp Pulse Resp BP 04/19/18 08:00 98.3 F 92 20 04/19/18 07:51 98.3 F 92 20 125/80 Weight Weight 160 lb - Physical Examination General: NAD Cardiovascular: RRR Respiratory: non-labored breathing Abdominal: no distention, appropriately TTP Fundus firm & at: below umbilicus Extremities: negative homans (B) Skin: CS incision dry & intact Neurological: no gross focal deficits Psychiatric: A&Ox3 Result Diagrams: 04/17/18 04:26 04/17/18 04:26 Additional Labs: Post Labs Blood Type O POSITIVE 04/15/18 08:14 Hep Bs Antigen Non-Reactive S/CO (NonReactive) 04/14/18 21:08 (1) 36 weeks gestation of Code(s): Z3A.36 - 36 WEEKS GESTATION OF Status: Resolved (2) Transaminitis Code(s): R74.0 - NONSPEC ELEV OF LEVELS OF TRANSAMNS & LACTIC ACID DEHYDRGNSE Status: Acute (3) Gestational diabetes Code(s): O24.419 - GESTATIONAL DIABETES MELLITUS IN , UNSP CONTROL Status: Resolved (4) Cholelithiasis Code(s): K80.20 - CALCULUS OF GALLBLADDER W/O CHOLECYSTITIS W/O OBSTRUCTION Status: Acute (5) Cholestasis during Code(s): O26.619 - LIVER AND BILIARY TRACT DISORD IN , UNSP TRIMESTER; K83.1 - OBSTRUCTION OF BILE DUCT Status: Acute - Assessment/Plan POD #3 VSSAF Doing well. Stable for discharge, however, desires to stay another night due to in NICU and pt pumping/breast feeding. Discussed case with general surgery, her LFTs and T bili have drastically improved. Recommend f/u as an outpatient for cholelithiasis.
[2018-04-19] MEDS: Prenatal Vitamin 1 TAB PO SCH (09:56)
--- NOTE | 2018-04-20 10:44 | DIS ---
ADMISSION DIAGNOSIS: 1. A 36 week 3-day intrauterine . 2. Transaminitis. 3. Proteinuria. 4. Cholelithiasis. DISCHARGE DIAGNOSES: 1. Status post repeat low transverse delivery. 2. Cholestasis of . 3. Cholelithiasis. ADMISSION PHYSICIAN: Matthew Sy M.D. DISCHARGE PHYSICIAN: Zohra Denney D.O DATE OF ADMISSION: 04/14/2018 DATE OF DISCHARGE: 04/19/2018 BRIEF HOSPITAL COURSE: Ms. Violet Valentine is a 28-year-old G6, P5 at 36 weeks and 3 days who presented w ith complaints of contractions. The patient underwent observation due to a mild range blood pressure of 145/95 and underwent laboratory assessment with noted transaminitis and a slight proteinuria. Th e patient was then kept for observation. Her blood pressures were completely normal with systolic pr essures in the 1-teens and diastolics in the 60s-70s. Her transaminitis did worsen with evaluation for more than 24 hours and she did have a proteinuria. The patient then began to complain of itching . Due to generalized itching worse on the palms and soles and transaminitis that was worsening, it w as felt that she likely had cholestasis of and it was recommended for delivery. The patien t did receive a betamethasone course prior to delivery for lung maturity. The patient also has cholelithiasis noted on the right upper quadrant sonogram and General Surgery was consulted during h er admission for their input. The patient ultimately underwent a repeat low transverse deli rosemarie and her course was benign. Her transaminitis resolved after delivery and her total b ilirubin also decreased to normal range. She was kept additional days due to infant in NICU related to hypoglycemia from gestational diabetes. I spoke with General Surgery prior to discharge for the p atient. She can follow up as an outpatient as her labs have normalized and likely her laboratory abn ormalities may have been just related to the cholestasis of ; however, he did recommend that if she desires future fertility that she have a cholecystectomy prior to an additional . T he patient was discharged on 04/19/2018 and is staying at the [facility] due to the is still in NICU. T FOLLOWUP: he patient to present to [facility] 7 days postoperatively for staple removal. DIET: Regular. ACTIVITY: No heavy pushing, pulling or lifting and pelvic rest for 6 weeks. MEDICATIONS: 1. Ultram 50 mg 1 tablet every 6 hours p.r.n. pain. 2. Motrin 800 mg 1 tablet p.r.n. pain every 8 hours.
== END 2018-04-19 17:40 | disposition home or self-care (01) | DRG 765 ==
LOC: L&D/OP 13:52 → L&D 04-15 00:08 → OBSVTOIN 04-15 16:51 → 3SW 04-16 14:30
PROVIDERS: ADMIT Obstetrics & Gynecology; ATTEND Obstetrics & Gynecology
PROC: 10D00Z1 Extraction of Products of Conception, Low, Open Approach (ICD-10-PCS; principal; 2018-04-16)
PROC: 10S07ZZ Reposition Products of Conception, Via Natural or Artificial Opening (ICD-10-PCS; 2018-04-16)
DX: O26.62 Liver and biliary tract disorders in childbirth (principal); O26.833 Pregnancy related renal disease, third trimester; N04.9 Nephrotic syndrome with unspecified morphologic changes; K80.20 Calculus of gallbladder without cholecystitis without obstruction; O34.211 Maternal care for low transverse scar from previous cesarean delivery; O64.8XX0 Obstructed labor due to other malposition and malpresentation, not applicable or unspecified; O24.425 Gestational diabetes mellitus in childbirth, controlled by oral hypoglycemic drugs; Z37.0 Single live birth; Z3A.36 36 weeks gestation of pregnancy
CPT/HCPCS: 36415; 36416; 51702; 76705; 76815; 76816; 76819; 80053; 80076; 81003; 81015; 82239; 82570; 82805; 84156; 85025; 85027; 86803; 86850; 86900; 86901; 87340; 87389; 99285; A4216; A4353; J0131; J0171; J0702; J1200; J1815; J1885; J2274; J2405; J2590; J3010; J3490

== ENCOUNTER 2020-08-03 18:54 | Emergency (ER) | payer MEDICAID | END 2020-08-03 20:10 | disposition home or self-care (01) | LOC: ERS 18:54 | DX: N61.0 Mastitis without abscess (principal) | CPT/HCPCS: 99283 ==

== ENCOUNTER 2020-12-21 22:06 | Emergency (ER) | payer MEDICAID, SELFPAY ==
[2020-12-21] MEDS ORDERED: Diazepam 10 MG/2 ML SYRINGE ONE (22:48)
[2020-12-21] MEDS ORDERED: Metoclopramide HCl 10 MG/2 ML VIAL ONE (22:48)
[2020-12-21] MEDS ORDERED: diphenhydrAMINE 50 MG/ML VIAL ONE (22:49)
[2020-12-21 22:59] LABS: Bacteria/HPF None Seen HPF (None Seen); Bilirubin Negative (Negative); Blood, Urine 1+ (Negative); Clarity Clear (Clear); Glucose, Urine (Dipstick) Greater than 1000 mg/dL (Negative); Ketone, Urine Negative (Negative); Leukocyte Negative Leu/uL (Negative); Nitrite Negative (Negative); Protein, Urine (Dipstick) 10 mg/dL (Neg-Trace); RBC/HPF 0-3 HPF (0-3); Specific Gravity, Urine 1.038 (1.002-1.036); Squamous Epithelial 0-3 HPF (0-3); Urobilinogen Normal mg/dL (Less than 2); WBC/HPF 0-3 HPF (0-3)
[2020-12-21 23:07] LABS: BHCG - Serum Negative (NEGATIVE); Pregs Control Background? CLEAR/WHITE (CLR/WHITE); Pregs Control Bar Appear? YES (CONTROL BAR)
[2020-12-21 23:11] LABS: ALT (SGPT) 17 U/L (8-55); AST (SGOT) 18 U/L (5-34); Albumin 3.8 g/dL (3.5-5.0); Alkaline Phosphatase 134 U/L (40-110); Anion Gap 13 mmol/L (10-20); BUN (Urea Nitrogen) 13 mg/dL (7.0-18.7); Bilirubin, Total 1.1 mg/dL (0.2-1.2); Calc. Creatinine Clearance 0 mL/min (70-130); Calcium 8.7 mg/dL (7.8-10.44); Carbon Dioxide 25 mmol/L (22-29); Chloride 98 mmol/L (98-107); Globulin 3.2 g/dL (2.4-3.5); Glucose 545 mg/dL (70-105); Potassium 4.1 mmol/L (3.5-5.1); Sodium 132 mmol/L (136-145)
[2020-12-21 23:18] LABS: #Lymphocytes 0.9 thou/uL (1.20-3.40); #Neutrophils 1.1 thou/uL (1.40-6.50); %Basophils 0.2 % (0.0-1.0); %Lymphocytes 42.1 % (21.0-51.0); %Monocytes 0.8 % (0.0-10.0); %Neutrophils 54.9 % (42.0-75.0); Hemoglobin 9.9 g/dL (12.0-16.0); Mean Corpuscular HGB CONC 36.7 g/dL (32.0-36.0); Mean Corpuscular Hemoglobin 29.6 pg (27.0-31.0); Mean Corpuscular Volume 80.8 fL (78.0-98.0); Mean Platelet Volume 8.3 fL (7.4-10.4); Platelet Count 86 thou/uL (130-400); RBC Distribution Width 16.9 % (11.5-14.5); Red Blood Cell (RBC) Count 3.33 mill/uL (4.20-5.40); White Blood Cell (WBC) Count 2.1 thou/uL (4.8-10.8)
== END 2020-12-22 00:50 | disposition home or self-care (01) ==
LOC: ERS 22:06
DX: R51.9 Headache, unspecified (principal); M54.5 Low back pain; E11.65 Type 2 diabetes mellitus with hyperglycemia
CPT/HCPCS: 80053; 81003; 81015; 84703; 85025; 96365; 96366; 96375; J1200; J2765; J3360

== ENCOUNTER 2020-12-23 18:33 | Emergency (ER) | payer OTHER, SELFPAY ==
[~2020-12-23 18:33] MED LIST: Iopamidol-370 76% 500 ML 1 ML ONE
[2020-12-23 19:02] LABS: #Lymphocytes 0.9 thou/uL (1.20-3.40); #Monocytes 0.1 thou/uL (0.11-0.59); #Neutrophils 1.4 thou/uL (1.40-6.50); %Basophils 0.4 % (0.0-1.0); %Eosinophils 1.4 % (0.0-10.0); %Monocytes 4.7 % (0.0-10.0); %Neutrophils 57.5 % (42.0-75.0); Hemoglobin 10.1 g/dL (12.0-16.0); Mean Corpuscular HGB CONC 36.8 g/dL (32.0-36.0); Mean Corpuscular Hemoglobin 29.8 pg (27.0-31.0); Mean Corpuscular Volume 81.2 fL (78.0-98.0); Mean Platelet Volume 7.9 fL (7.4-10.4); Platelet Count 84 thou/uL (130-400); RBC Distribution Width 17.8 % (11.5-14.5); Red Blood Cell (RBC) Count 3.38 mill/uL (4.20-5.40); White Blood Cell (WBC) Count 2.5 thou/uL (4.8-10.8)
[2020-12-23 19:25] LABS: ALT (SGPT) 14 U/L (8-55); AST (SGOT) 13 U/L (5-34); Alkaline Phosphatase 120 U/L (40-110); Anion Gap 13 mmol/L (10-20); BUN (Urea Nitrogen) 11 mg/dL (7.0-18.7); Bilirubin, Total 1.8 mg/dL (0.2-1.2); Calc. Creatinine Clearance 0 mL/min (70-130); Calcium 8.8 mg/dL (7.8-10.44); Carbon Dioxide 25 mmol/L (22-29); Chloride 99 mmol/L (98-107); Globulin 3.5 g/dL (2.4-3.5); Glucose 381 mg/dL (70-105); Potassium 4.1 mmol/L (3.5-5.1); Protein, Total 7.5 g/dL (6.0-8.3); Sodium 133 mmol/L (136-145)
[2020-12-23 19:45] LABS: BHCG - Serum Negative (NEGATIVE); Pregs Control Background? CLEAR/WHITE (CLR/WHITE); Pregs Control Bar Appear? YES (CONTROL BAR)
[2020-12-23 19:52] LABS: Bacteria/HPF None Seen HPF (None Seen); Bilirubin Negative (Negative); Blood, Urine Negative (Negative); Clarity Clear (Clear); Glucose, Urine (Dipstick) Greater than 1000 mg/dL (Negative); Ketone, Urine 40 mg/dL (Negative); Leukocyte Negative Leu/uL (Negative); Nitrite Negative (Negative); Protein, Urine (Dipstick) 50 mg/dL (Neg-Trace); RBC/HPF 0-3 HPF (0-3); Specific Gravity, Urine 1.034 (1.002-1.036); Squamous Epithelial 0-3 HPF (0-3); Urobilinogen Normal mg/dL (Less than 2); WBC/HPF 0-3 HPF (0-3); pH, Urine 5.5 (5.0-9.0)
[2020-12-23] MEDS ORDERED: Acetaminophen 500 MG TAB ONE (22:39)
[2020-12-23] MEDS ORDERED: diphenhydrAMINE 50 MG/ML VIAL ONE (22:45)
[2020-12-23] MEDS ORDERED: Metoclopramide HCl 10 MG/2 ML VIAL ONE (22:45)
[2020-12-24 07:02] LABS: SARS-CoV-2 PCR by NAA Not Detected (NotDetected)
== END 2020-12-24 02:06 | disposition home or self-care (01) ==
LOC: ERS 18:33
DX: R07.9 Chest pain, unspecified (principal); R51.9 Headache, unspecified; Z20.828 Contact with and (suspected) exposure to other viral communicable diseases
CPT/HCPCS: 36415; 71046; 71275; 80053; 81003; 81015; 82550; 84484; 84703; 85025; 85379; 87040; 87635; 93005; 96365; 96375; J1200; J2765; Q9967; U0003; U0005